=== PATIENT | female | born 1970 | race Caucasian/White ===

== ENCOUNTER 2020-09-29 09:10 | Emergency (ER) | payer OTHER ==
[~2020-09-29] VITALS: Ht 165.1 cm; Wt 88.5 kg
--- NOTE | 2020-09-29 10:14 | ED General ---
General Chief Complaint: Allergic Reaction Stated Complaint: HIVES Nursing Triage Note: PT ARRIVED BY PRIVATE VEHICLE WITH CHIEF COMPLAINT OF HIVES. PT WAS ALERT, ORIENTED X 4 AND AMBULATORY. PT STATED THE HIVES STARTED YESTERDAY MORNING. SHE HAS BEEN TAKING BENEDRYL AND IT IS NOT WORKING ANYMORE. THE LAST TIME SHE TOOK BENADRYL WAS 1 HOUR PRIOR TO ARRIVAL. PT HAS HISTORY OF HIVES ON AND OFF. UNSURE WHAT TRIGGERED HER HIVES. PT'S VITALS WER DONE ON ARRIVAL. Source of Information: Patient Exam Limitations: No Limitations History of Present Illness Date Seen by Provider: Sep 29, 2020 Time Seen by Provider: 09:56 Initial Comments This 50-year-old woman presents to the emergency room with complaints of diffuse hives and itching. She does not know what triggers them. She has multiple episodes per year typically. This episode seems to be more severe that the other episode she has experienced. She has been taking Benadryl but it does not seem to be effective any longer. She denies any tongue, lip, or throat swelling or shortness of breath. She also reports having a tick bite over her left hip with a target lesion a couple of weeks ago. Allergies and Home Medications Allergies Coded Allergies: Penicillins (Verified Allergy, Unknown, 09/29/20) Sulfa (Sulfonamide Antibiotics) (Verified Allergy, Unknown, 09/29/20) Home Medications Doxycycline Hyclate 100 Mg Tablet, 100 MG PO BID Prescribed by: GINNY MELENDREZ on 09/29/20 1119 Epinephrine 0.3 Mg/0.3 Ml Auto.injct, 0.3 MG IJ ONCE PRN for SHORTNESS OF BREATH For anaphylaxis Prescribed by: GINNY MELENDREZ on 09/29/20 1119 Prednisone 20 Mg Tab, 20 MG PO BID Prescribed by: GINNY MELENDREZ on 09/29/20 1119 Patient Home Medication List Home Medication List Reviewed: Yes Review of Systems Review of Systems Constitutional: no symptoms reported EENTM: no symptoms reported Respiratory: no symptoms reported Cardiovascular: no symptoms reported Gastrointestinal: no symptoms reported Genitourinary: no symptoms reported : No Musculoskeletal: no symptoms reported Skin: see HPI Psychiatric/Neurological: No Symptoms Reported Hematologic/Lymphatic: No Symptoms Reported Immunological/Allergic: see HPI Past [id number] Hx Patient Social History Tobacco Use?: No Smoking Status: Never a Smoker Use of E-Cig and/or Vaping [place]: Never a User Substance use?: No Alcohol Use?: No Pt feels they are or have been: No Past Medical History Surgeries: Yes Gallbladder, Orthopedic Respiratory: No Cardiac: No Neurological: No : No Reproductive Disorders: No Genitourinary: No Gastrointestinal: No Musculoskeletal: No Endocrine: No HEENT: No Cancer: No Psychosocial: No Integumentary: Yes (Recurrent hives without known trigger) Physical Exam Vital Signs Vital Signs - First Documented 09/29/20 09:20 Temp 35.7 Pulse 80 Resp 18 B/P (MAP) 133/76 (95) Pulse Ox 100 O2 Delivery Room Air Capillary Refill : Less Than 3 Seconds Height, Weight, BMI Height: '" Weight: lbs. oz. 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 II-XII Norm as Tested Skin: Warm/Dry, Other (Diffuse hives, dusky quarter sized lesion on the left hip at site of tick bite) Progress/Results/Core Measures Suspected Sepsis SIRS Temperature: Pulse: 80 Respiratory Rate: 18 Laboratory Tests 09/29/20 10:08: White Blood Count 7.2 Blood Pressure 133 /76 Mean: 95 Laboratory Tests 09/29/20 10:08: Creatinine 0.74, Platelet Count 239, Total Bilirubin 0.4 Results/Orders Lab Results Laboratory Tests Test 09/29/20 10:08 Range/Units White Blood Count 7.2 4.3-11.0 10^3/uL Red Blood Count 5.09 3.80-5.11 10^6/uL Hemoglobin 15.1 11.5-16.0 g/dL Hematocrit 45 35-52 % Mean Corpuscular Volume 89 80-99 fL Mean Corpuscular Hemoglobin 30 25-34 pg Mean Corpuscular Hemoglobin Concent 33 32-36 g/dL Red Cell Distribution Width 13.0 10.0-14.5 % Platelet Count 239 130-400 10^3/uL Mean Platelet Volume 10.0 9.0-12.2 fL Immature Granulocyte % (Auto) 0 % Neutrophils (%) (Auto) 69 42-75 % Lymphocytes (%) (Auto) 27 12-44 % Monocytes (%) (Auto) 4 0-12 % Eosinophils (%) (Auto) 1 0-10 % Basophils (%) (Auto) 0 0-10 % Neutrophils # (Auto) 5.0 1.8-7.8 10^3/uL Lymphocytes # (Auto) 1.9 1.0-4.0 10^3/uL Monocytes # (Auto) 0.3 0.0-1.0 10^3/uL Eosinophils # (Auto) 0.1 0.0-0.3 10^3/uL Basophils # (Auto) 0.0 0.0-0.1 10^3/uL Immature Granulocyte # (Auto) 0.0 0.0-0.1 10^3/uL Sodium Level 141 135-145 MMOL/L Potassium Level 3.9 3.6-5.0 MMOL/L Chloride Level 108 H 98-107 MMOL/L Carbon Dioxide Level 21 21-32 MMOL/L Anion Gap 12 5-14 MMOL/L Blood Urea Nitrogen 12 7-18 MG/DL Creatinine 0.74 0.60-1.30 MG/DL Estimat Glomerular Filtration Rate > 60 BUN/Creatinine Ratio 16 Glucose Level 111 H 70-105 MG/DL Calcium Level 8.8 8.5-10.1 MG/DL Corrected Calcium 8.8 8.5-10.1 MG/DL Total Bilirubin 0.4 0.1-1.0 MG/DL Aspartate Amino Transf (AST/SGOT) 10 5-34 U/L Alanine Aminotransferase (ALT/SGPT) 8 0-55 U/L Alkaline Phosphatase 61 40-136 U/L C-Reactive Protein High Sensitivity 1.06 H 0.00-0.50 MG/DL Total Protein 7.1 6.4-8.2 GM/DL Albumin 4.0 3.2-4.5 GM/DL My Orders Orders - GINNY ROSADO MD Cbc With Automated Diff (09/29/20 10:03) Comprehensive Metabolic Panel (09/29/20 10:03) Hs C Reactive Protein (09/29/20 10:03) Tick Panel With Lyme Eia (09/29/20 10:03) Ed Iv/Invasive Line Start (09/29/20 10:03) Famotidine Injection (Pepcid Injection) (09/29/20 10:15) Methylprednisolone Sod Succ (Solu-Medrol (09/29/20 10:15) Medications Given in ED Current Medications Medications Dose Ordered Sig/Mathew Route Start Time Stop Time Status Last Admin Dose Admin Famotidine 20 mg ONCE ONCE IVP 09/29/20 10:15 09/29/20 10:16 DC 09/29/20 10:22 20 MG Methylprednisolone Sodium Succinate 125 mg ONCE ONCE IVP 09/29/20 10:15 09/29/20 10:16 DC 09/29/20 10:22 125 MG Vital Signs/I&O 09/29/20 09/29/20 09:20 11:25 Temp 35.7 Pulse 80 64 Resp 18 16 B/P (MAP) 133/76 (95) 133/76 Pulse Ox 100 97 O2 Delivery Room Air Room Air Capillary Refill : Less Than 3 Seconds Blood Pressure Mean: 95 Progress Note : Progress Note Labs were obtained including a tick panel. Pepcid and Solu-Medrol were administered. I advised treating for possible tickborne illness. I also prescribed an EpiPen since patient will be traveling out of state today. See discharge instructions. Departure Impression Primary Impression: Hives Additional Impression: Tick bite Qualified Codes: W57.XXXA - Bitten or stung by nonvenomous insect and other nonvenomous arthropods, initial encounter Disposition: 01 HOME, SELF-CARE Condition: Improved Departure-Patient Inst. Decision time for Depature: 11:13 Referrals: NOEMY LEE MD (PCP/Family) Primary Care Physician Patient Instructions: Hives, Tickborne Encephalitis Add. Discharge Instructions: You may continue taking Benadryl up to 50 mg every 4 hours as needed for itching and hives. Also take the steroids as prescribed over the next 4 days. Take EpiPen and return to emergency services if you develop swelling of the mouth, lips, throat, or difficulty breathing. Call with questions or concerns. Follow-up with your primary care provider soon as possible. Complete your antibiotics as prescribed and follow-up with your primary care provider to review tick panel results in about 4 or 5 days. All discharge instructions reviewed with patient and/or family. Voiced understanding. Scripts Epinephrine (Epipen) 0.3 Mg/0.3 Ml Auto.injct 0.3 MG IJ ONCE PRN for SHORTNESS OF BREATH, #1 ML For anaphylaxis Prov: GINNY ROSADO MD 09/29/20 Prednisone (Prednisone) 20 Mg Tab 20 MG PO BID, #8 TAB 0 Refills Prov: GINNY ROSADO MD 09/29/20 Doxycycline Hyclate (Doxycycline Hyclate) 100 Mg Tablet 100 MG PO BID, #20 TAB 0 Refills Prov: GINNY ROSADO MD 09/29/20 GINNY ROSADO MD Sep 29, 2020 10:14
[2020-09-29] MEDS ORDERED: FAMOTIDINE 20MG/2ML IV (PEPCID) IVP ONE (10:15)
[2020-09-29] MEDS ORDERED: methylPREDNISolone 125 MG (Solu-MEDROL) VIAL IVP ONE (10:15)
[2020-09-29 10:17] LABS: BASOPHILS % (AUTO) 0 % (0-10); EOSINOPHILS # (AUTO) 0.1 10^3/uL (0.0-0.3); EOSINOPHILS % (AUTO) 1 % (0-10); HEMATOCRIT 45 % (35-52); HEMOGLOBIN 15.1 g/dL (11.5-16.0); LYMPHOCYTES # (AUTO) 1.9 10^3/uL (1.0-4.0); LYMPHOCYTES % (AUTO) 27 % (12-44); MEAN CORPUSCULAR HEMOGLOBIN 30 pg (25-34); MEAN CORPUSCULAR HGB CONC 33 g/dL (32-36); MEAN CORPUSCULAR VOLUME 89 fL (80-99); MONOCYTES # (AUTO) 0.3 10^3/uL (0.0-1.0); MONOCYTES % (AUTO) 4 % (0-12); NEUTROPHILS % (AUTO) 69 % (42-75); PLATELET COUNT 239 10^3/uL (130-400); WHITE BLOOD COUNT 7.2 10^3/uL (4.3-11.0)
[2020-09-29 10:30] LABS: CHLORIDE 108 MMOL/L (98-107); POTASSIUM 3.9 MMOL/L (3.6-5.0); SODIUM 141 MMOL/L (135-145)
[2020-09-29 10:31] LABS: CALCIUM 8.8 MG/DL (8.5-10.1)
[2020-09-29 10:33] LABS: GLUCOSE 111 MG/DL (70-105); TOTAL PROTEIN 7.1 GM/DL (6.4-8.2)
[2020-09-29 10:34] LABS: BILIRUBIN,TOTAL 0.4 MG/DL (0.1-1.0); CARBON DIOXIDE 21 MMOL/L (21-32)
[2020-09-29 10:36] LABS: ALKALINE PHOSPHATASE 61 U/L (40-136)
[2020-09-29 10:37] LABS: CREATININE SERUM 0.74 MG/DL (0.60-1.30); GFR ESTIMATED > 60
[2020-09-29 10:38] LABS: BUN/CREATININE RATIO 16
[2020-09-29 10:39] LABS: ALANINE AMINOTRANSFERASE 8 U/L (0-55)
[2020-09-29] MEDS ORDERED: EPIN0.3P2 IJ (11:19)
[2020-09-29] MEDS ORDERED: DOXY100T2 PO (11:19)
[2020-09-29] MEDS ORDERED: PRD20T PO (11:19)
[2020-09-29 11:25] VITALS: BP 133/76
== END 2020-09-29 11:25 | disposition home or self-care (01) ==
LOC: ER 09:14
DX: L50.9 Urticaria, unspecified (principal); S70.262A Insect bite (nonvenomous), left hip, initial encounter; W57.XXXA Bitten or stung by nonvenomous insect and other nonvenomous arthropods, initial encounter
CPT/HCPCS: 36415; 80053; 85025; 86141; 86618; 86666; 86668; 86757